=== PATIENT | male | born 1965 | race African-American/Black ===

== ENCOUNTER 2024-05-15 12:50 | Inpatient (IN) | payer OTHER ==
[2024-05-15 13:32] VITALS: BMI 21.2
[2024-05-15] MEDS ORDERED: NALOXONE HCL 0.4 MG/ML VIAL IM PRN (14:08)
[2024-05-15] MEDS ORDERED: DICYCLOMINE HCL 10 MG CAPSULE PO PRN (14:08)
[2024-05-15] MEDS ORDERED: ACETAMINOPHEN 325 MG TABLET (FP) PO PRN (14:08)
[2024-05-15] MEDS ORDERED: LOPERAMIDE HCL 2 MG CAPSULE PO PRN (14:08)
[2024-05-15] MEDS ORDERED: NALOXONE (NARCAN) HCL 4 MG/0.1 ML SPRAY NS PRN (14:08)
[2024-05-15] MEDS ORDERED: IBUPROFEN 400 MG TABLET (FP) PO PRN (14:08)
[2024-05-15] MEDS ORDERED: ONDANSETRON *ODT* 4 MG TABLET SL PRN (14:08)
[2024-05-15] MEDS ORDERED: guaiFENesin 600 MG TABLET.ER (FP) PO PRN (14:08)
[2024-05-15] MEDS ORDERED: BENZONATATE 200 MG CAPSULE PO PRN (14:08)
[2024-05-15] MEDS ORDERED: MAG HYDROX/AL HYDROX/SIMETH 30 ML UNIT-DOSE CUP PO PRN (14:08)
[2024-05-15] MEDS ORDERED: POLYETHYLENE GLYCOL (HEALTHYLAX) 3350 17 GM PACKET PO PRN (14:08)
[2024-05-15] MEDS ORDERED: BENZOCAINE/MENTHOL (CHLORASEPTIC ) LOZENGE MM PRN (14:08)
[2024-05-15] MEDS ORDERED: MAGNESIUM HYDROX 2400MG/30ML ORAL SUSPENSION 30 ML CUP PO PRN (14:08)
[2024-05-15] MEDS ORDERED: BISMUTH SUBSALICYLATE 262 MG/15 ML BTL PO PRN (14:08)
[2024-05-15] MEDS: METHOCARBAMOL 500 MG TABLET PO PRN (15:14)
[2024-05-15] MEDS: THIAMINE 100 MG TABLET PO SCH (22:18)
[2024-05-15] MEDS: MELATONIN 5 MG TABLETS PO SCH (22:18)
[2024-05-16] MEDS ORDERED: METHOCARBAMOL 500 MG TABLET PO PRN (09:06)
[2024-05-16] MEDS: NICOTINE 14 MG/24 HOURS TOPICAL PATCH TD SCH (10:09)
[2024-05-16] MEDS: PRENATAL VITAMINS W/ FOLIC ACID TABLET (FP) PO SCH (10:09)
[2024-05-16] MEDS: NICOTINE POLACRILEX 2 MG GUM BUC PRN (10:11)
[2024-05-16 11:52] LABS: HEMOGLOBIN 13.2 GM/dL (11.7-16.9); MCH 30.2 pg (25.7-33.7); MCHC 33.9 g/dl (32.0-35.9); MEAN CELL VOLUME 89.1 fl (80-96); MEAN PLT VOLUME 9.3 fl (7.5-11.1); PLATELET COUNT 197 10^3/uL (134-434); RBC 4.38 M/mm3 (4.00-5.60); RDW 15.5 % (11.9-15.9); WHITE BLOOD COUNT 2.9 K/mm3 (4.0-10.0)
[2024-05-16 13:51] LABS: CHLORIDE 104 mmol/L (98-107); POTASSIUM 4.1 mmol/L (3.5-5.1); SODIUM 140 mmol/L (136-145)
[2024-05-16 13:54] LABS: CALCIUM 9.2 mg/dL (8.5-10.1)
[2024-05-16 13:55] LABS: ALBUMIN 3.5 g/dl (3.4-5.0); BLOOD UREA NITROGEN 12.3 mg/dL (7-18); CO2 31 mmol/L (21-32); GLUCOSE,RANDOM 78 mg/dL (74-106)
[2024-05-16 13:58] LABS: SGOT/AST 26 U/L (15-37); SGPT/ALT 26 U/L (13-61)
[2024-05-16 13:59] LABS: TOT PROT 7.2 g/dl (6.4-8.2)
[2024-05-16 14:00] LABS: ALK PHOS 94 U/L (45-117); BILIRUBIN,TOTAL 0.8 mg/dL (0.2-1)
[2024-05-16] MEDS: hydrOXYzine PAMOATE 25 MG CAPSULE (FP) PO PRN (17:18)
[2024-05-17 09:24] VITALS: BP 112/68; PULSE 78; RESP 18; TEMP 97.3
[2024-05-17] MEDS: IBUPROFEN 600 MG TABLET (FP) PO PRN (10:41)
== END 2024-05-17 11:30 | disposition other institution (70) | DRG 773 ==
LOC: YASAS 12:50 → Y3N 13:56
PROVIDERS: ADMIT Allergy & Immunology; ATTEND Surgery
PROC: HZ2ZZZZ Detoxification Services for Substance Abuse Treatment (ICD-10-PCS; principal; 2024-05-15)
DX: F10.230 Alcohol dependence with withdrawal, uncomplicated (principal); F11.10 Opioid abuse, uncomplicated; F14.20 Cocaine dependence, uncomplicated; F12.20 Cannabis dependence, uncomplicated; F17.210 Nicotine dependence, cigarettes, uncomplicated; G24.3 Spasmodic torticollis; Z62.810 Personal history of physical and sexual abuse in childhood; Z56.0 Unemployment, unspecified; Z59.00 Homelessness unspecified
CPT/HCPCS: 36415; 80053; 80305; 80307; 85027; 86780; 93005; 93010